=== PATIENT | male | born 1965 | race Caucasian/White ===

== ENCOUNTER 2017-01-12 10:16 | Outpatient (CLI) | payer OTHER | END 2017-01-12 23:59 | DX: E78.1 Pure hyperglyceridemia (principal); D45 Polycythemia vera ==

== ENCOUNTER 2017-06-27 14:20 | Outpatient (CLI) | payer OTHER ==
--- NOTE | 2017-06-27 18:49 | Ultrasound Report ---
COMPLETE ABDOMINAL ULTRASOUND: 06/27/2017 CLINICAL INDICATION: Polycythemia vera, possible splenomegaly, pain. TECHNIQUE: Real-time scanning was performed with marketing sales representative static images obtained. The liver measures 12.9 cm. Hepatic echogenicity is normal. No intrahepatic biliary dilatation or f ocal parenchymal lesion is appreciated. The common bile duct measures 3 mm. The gallbladder is unre markable. The pancreas is obscured by bowel gas, as are portions of the left lobe of the liver. The kidneys are normal, with right measuring 11.2 cm and the left measuring 12.1 cm. The spleen measure s 11.2 cm, and demonstrates normal echotexture. The abdominal aorta is normal in caliber. The infer ior vena cava is unremarkable. No free fluid is present. IMPRESSION: NO EVIDENCE OF SPLENOMEGALY. NO EVIDENT ETIOLOGY FOR PATIENT'S ABDOMINAL PAIN. JOB #: [id number] EXT JOB #:[id number]
== END 2017-06-27 14:21 | disposition home or self-care (01) ==
LOC: DI 14:20
PROVIDERS: ATTEND Family Medicine
DX: R10.9 Unspecified abdominal pain (principal)
CPT/HCPCS: 76700

== ENCOUNTER 2018-10-06 12:08 | Outpatient (CLI) | payer OTHER ==
--- NOTE | 2018-10-06 21:28 | MRI Report ---
Reason: KNEE JOIN PAIN, LEFT 3 MONTHS Procedure Date: 10/06/2018 Accession Number: [id number] / [id number] Procedure: MRI - Knee LT W/O CPT Code: FULL RESULT: EXAM: LEFT KNEE MRI WITHOUT CONTRAST EXAM DATE: 10/06/2018 12:50 PM. CLINICAL HISTORY: KNEE JOIN PAIN, LEFT 3 MONTHS. COMPARISON: KNEE 2 VIEW LT 09/24/2018 2:46 PM. TECHNIQUE: Multiplanar, multisequence T1-weighted and fluid-sensitive sequences of the knee without contrast. Other: None. FINDINGS: Ligaments: The anterior cruciate, posterior cruciate, medial collateral, and lateral collateral ligaments are intact. Patellofemoral compartment: Mild partial-thickness medial retropatellar chondromalacia. Minimal partial thickness central femoral trochlear chondromalacia. No patellofemoral osteoarthritis. Incidental elongated medial plica extends into the medial patellofemoral joint space. Patellofemoral alignment is anatomic. The distal quadriceps and patellar tendons are normal. The medial and lateral patellofemoral retinacula are normal. Medial compartment: The medial meniscus is intact. Mild partial-thickness chondromalacia of the lateral margin of the medial femoral condyle with minimal subjacent degenerative marrow signal changes. No significant medial compartment osteophyte formation. Lateral compartment: The lateral meniscus is intact. Lateral compartment cartilage is normal. No lateral compartment osteoarthritis. Soft tissues: There is a large knee effusion with moderate synovitis. There is only a minuscule popliteal cyst. Fluid tracks proximally from the knee joint along the popliteus tendon sheath. Visible muscular and tenderness structures are unremarkable. IMPRESSION: 1. Mild partial-thickness medial retropatellar chondromalacia. Minimal partial thickness central femoral trochlear chondromalacia. 2. Elongated medial plica extends into the medial patellofemoral joint space. 3. Mild partial-thickness chondromalacia of the lateral margin of the medial femoral condyle without associated osteoarthritis. Intact medial meniscus. 4. Normal lateral compartment. 5. Large knee effusion with moderate synovitis. This is out of proportion to the relatively mild findings present elsewhere in the knee and could reflect evidence of an inflammatory arthropathy. [facility] MUSCULOSKELETAL RADIOLOGY SECTION
== END 2018-10-06 12:09 | disposition home or self-care (01) ==
LOC: DI 12:08
PROVIDERS: ATTEND Family Medicine
DX: M94.262 Chondromalacia, left knee (principal); M67.52 Plica syndrome, left knee; M65.9 Synovitis and tenosynovitis, unspecified; M25.462 Effusion, left knee

== ENCOUNTER 2018-10-29 08:00 | Outpatient (CLI) | payer OTHER ==
[2018-10-29 14:58] LABS: ALBUMIN 4.2 g/dL (3.2-5.5); ALBUMIN/GLOBULIN RATIO 1.2 (1.0-2.2); ALKALINE PHOSPHATASE 58 IU/L (42-121); ALT ALANINE AMINOTRANSFERASE 30 IU/L (10-60); AST ASPARTATE AMINOTRANSFERASE 26 IU/L (10-42); BILIRUBIN,TOTAL 0.8 mg/dL (0.2-1.0); BUN - BLOOD UREA NITROGEN 15 mg/dL (6-20); CALCIUM 8.7 mg/dL (8.5-10.3); CARBON DIOXIDE - CO2 28 mmol/L (21-32); CHLORIDE 101 mmol/L (101-111); CHOLESTEROL 166 mg/dL; CREATININE 0.9 mg/dL (0.6-1.2); GFR - MDRD 88 (>89); GLUCOSE 105 mg/dL (70-100); HDL CHOLESTEROL 41 mg/dL; LDL CHOLESTEROL,CALCULATED 106 mg/dL; LDL/HDL RATIO 2.6 (<3.6); SODIUM 137 mmol/L (135-145); TOTAL PROTEIN 7.6 g/dL (6.7-8.2); VLDL CHOLESTEROL 19 mg/dL
[2018-10-29 15:19] LABS: BASOPHILS # (AUTO) 0.1 10^3/uL (0.0-0.1); BASOPHILS % (AUTO) 1.4 %; EOSINOPHILS # (AUTO) 0.4 10^3/uL (0.0-0.7); EOSINOPHILS % (AUTO) 5.3 %; LYMPHOCYTES # (AUTO) 1.9 10^3/uL (1.5-3.5); LYMPHOCYTES % (AUTO) 27.8 %; MEAN CORPUSCULAR HEMOGLOBIN 31.3 pg (27.0-31.0); MEAN CORPUSCULAR HGB CONC 34.5 g/dL (32.0-36.0); MEAN CORPUSCULAR VOLUME 90.6 fL (80.0-94.0); MONOCYTES # (AUTO) 0.6 10^3/uL (0.0-1.0); MONOCYTES % (AUTO) 9.4 %; NEUTROPHILS # (AUTO) 3.8 10^3/uL (1.5-6.6); NEUTROPHILS % (AUTO) 56.1 %; PLT - PLATELET COUNT 253 10^3/uL (130-450); RED BLOOD COUNT 5.12 10^6/uL (4.70-6.10); RED CELL DISTRIBUTION WIDTH 12.8 % (12.0-15.0); WHITE BLOOD COUNT 6.8 x10^3/uL (4.8-10.8)
== END 2018-10-29 23:59 | disposition home or self-care (01) ==
LOC: LAB.WCP 08:00
PROVIDERS: ATTEND Family Medicine
DX: E78.1 Pure hyperglyceridemia (principal); D45 Polycythemia vera; I10 Essential (primary) hypertension
CPT/HCPCS: 36415; 80053; 80061; 83721; 84443; 85025

== ENCOUNTER 2018-11-25 08:41 | Emergency (ER) | payer OTHER ==
[2018-11-25 08:54] VITALS: BP 132/81
--- NOTE | 2018-11-25 09:10 | ED Physician Documentation ---
PD HPI URI - Stated complaint Stated Complaint: COUGH/CONGESTION - Chief complaint Chief Complaint: Heent - History obtained from History obtained from: Patient - History of Present Illness Timing - onset: How many days ago (3) Timing duration: Weeks (3) Timing details: Gradual onset, Intermittant Pain level max: 0 Pain level now: 0 Associated symptoms: Nasal congestion, Rhinorrhea, Sore throat, Productive cough, Bilateral edema. 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 No: Sick contact, Immunocompromised, COPD / asthma Improves by: Nothing Worsened by: Other (Nothing) Similar symptoms before: Has not had sx before Recently seen: Not recently seen - Additional information Additional information: 53-year-old male with history of hypertension and GERD, non-smoker here with with complaint of cough the past 3 days. He stated it started as dry and now has a little bit of yellowish phlegm. stated that this is been going on the past 3 weeks he would get better and then it would come back. 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 Patient denies any trauma or sick contact at home. States did not get his flu shot this year.Patient states he had taken robitussin DM and expectorant, Mucinex, lozenges and it has not help at all.When asked patient informed me that he is on lisinopril for his high blood pressure. Review of Systems Ten Systems: 10 systems reviewed and negative Constitutional: denies: Fever, Myalgias, Fatigue Nose: reports: Rhinorrhea / runny nose, Congestion Throat: reports: Sore throat Cardiac: denies: Chest pain / pressure Respiratory: reports: Cough. denies: Dyspnea, Hemoptysis, Wheezing GI: denies: Abdominal Pain, Nausea, Diarrhea Musculoskeletal: denies: Neck pain, Back pain, Extremity pain, Extremity swelling Neurologic: denies: Generalized weakness PD PAST MEDICAL HISTORY - Present Medications Home Medications: Ambulatory Orders Medication Instructions Recorded Confirmed Acetaminophen/Cod 300/30 [Tylenol 1 each PO Q8HR PRN #12 tablet 11/25/18 #3] RX: Aspirin 81 mg PO 12/11/25/18 RX: Lisinopril 10 mg PO 11/25/18 - Allergies Allergies/Adverse Reactions: Allergies Allergy/AdvReac Type Severity Reaction Status Date / Time Penicillins Allergy Mild Rash Verified 01/20/16 14:13 Sulfa (Sulfonamide Allergy Mild sores in Verified 01/20/16 14:13 Antibiotics) mouth PD ED PE NORMAL - Vitals Vital signs reviewed: Yes - General General: Alert and oriented X 3, No acute distress, Well developed/nourished - HEENT HEENT: Moist mucous membranes, Pharynx benign - Neck Neck: Supple, no meningeal sign - Cardiac Cardiac: RRR, No murmur - Respiratory Respiratory: No respiratory distress, Clear bilaterally - Abdomen Abdomen: Normal bowel sounds, Soft, Non tender, Non distended - Back Back: No CVA TTP - Derm Derm: Normal color, Warm and dry - Extremities Extremities: No deformity - Neuro Neuro: Alert and oriented X 3 - Psych Psych: Normal mood, Normal affect Results - Vitals Vitals: Vital Signs - 24 hr 11/25/18 08:52 Temperature 36.4 C L Heart Rate 70 Respiratory 18 Rate Blood Pressure 132/81 H O2 Saturation 98 Oxygen O2 Source Room air - Labs Labs: Laboratory Tests 11/25/18 09:20 Influenza A (Rapid) Negative Influenza B (Rapid) Negative PD MEDICAL DECISION MAKING - ED course Complexity details: reviewed results, re-evaluated patient, considered differential (Influenza, viral syndrome, upper respiratory infection, pneumonia, bronchitis), d/w patient, d/w family ED course: patient in no acute distress and nontoxic-appearing with intermittent dry cough informed of negative flu and negative chest x-ray. He now tells me that he is on lisinopril. Patient and informed that this may be the cause of hi s chronic cough. Instructed to call his primary doctor tomorrow for reevaluation of his lisinopril and cough And to consider switching to another antihypertensive medication. Patient is requesting to get a prescription for antitussive so it will help him and his sleep at nighttime. Will prescribe Tylenol 3 and safety precautions discussed. Departure - Departure Disposition: 01 Home, Self Care Clinical Impression: Cough due to DIANA inhibitor Condition: Stable Instructions: ED Cough Chronic Cause Unkn Prescriptions: Acetaminophen/Cod 300/30 [Tylenol #3] 1 each PO Q8HR PRN #12 tablet PRN Reason: Cough Comments: Your cough may be related to your lisinopril. Call your primary doctor tomorrow for reevaluation. Only take the Tylenol 3 when your cough is persistent. Do not drive or drink alcohol with this medication. And maintain safety. Sometimes the codeine can cause dizziness,Nausea and constipation. To prevent constipation drink lots of water, eat high-fiber foods and or take stool softener. If worse return to the emergency room. Discharge Date/Time: 11/25/18 10:32
--- NOTE | 2018-11-25 09:44 | XRAY Report ---
Reason: persistent cough Procedure Date: 11/25/2018 Accession Number: [id number] / [id number] Procedure: XR - Chest 2 View X-Ray CPT Code: 61025 FULL RESULT: EXAM: CHEST RADIOGRAPHY EXAM DATE: 11/25/2018 09:17 AM. CLINICAL HISTORY: Persistent cough. COMPARISON: None. TECHNIQUE: 2 views. FINDINGS: Lungs/Pleura: No focal airspace opacities. No pleural effusion or pneumothorax. Mediastinum: Cardiomediastinal silhouette and pulmonary vasculature are within normal limits. Other: None. IMPRESSION: No acute cardiopulmonary abnormality. [facility]
== END 2018-11-25 10:32 | disposition home or self-care (01) ==
LOC: ED 08:41
DX: R05 Cough (principal); T46.4X5A Adverse effect of angiotensin-converting-enzyme inhibitors, initial encounter; I10 Essential (primary) hypertension; Z79.82 Long term (current) use of aspirin
CPT/HCPCS: 71046; 87275; 87276; 99283

== ENCOUNTER 2020-11-25 08:29 | Outpatient (CLI) | payer OTHER ==
--- NOTE | 2020-11-25 09:09 | SLEEP CARE CONSULTATION ---
Information from patient questionnaire entered by Brittaney Thurston. I have reviewed and concur with the information entered by Brittaney Thurston. This document represents the service I personally performed and the decisions made by me, Payton Dietrich ARNP. History of Present Illness Service Date and Time: 11/25/2020828 Reason for Visit: New patient Chief Complaint: reports: Unrefreshed sleep, Snoring, Observed pauses in breathing, Frequent awakenings at night. denies: Excessive daytime sleepiness Date of Onset: 2-3 years Usual bedtime: 10 PM Time it takes to fall asleep: 30 minutes Snores at night: Yes Observed to quit breathing while asleep: Yes Sleeps alone due to snoring: Yes Number of times waking at night: 2-3 times Reasons for waking at night: reports: Bathroom. denies: Choking, Snoring, Gasping for air Toss, Turn, or Twitch while sleeping: Yes Recalls having dreams: Yes Usually gets out of bed at: 6 AM Feels refreshed in the morning: No Morning headache: No Sleepy or fatigued during the day: No Ever fallen asleep while driving: No Takes day naps: No Dreams during day naps: No Prior sleep studies: No Additional HPI information: I had the pleasure of seeing ANGIE HATCH today regarding the possibility of him having a sleep disorder. His current complaints are snoring, observed pauses in breathing, and unrefreshed sleep. noted some pauses in breathing. He ju st doesn't feel like he sleeps well. He gets about 6 hours on average. He does grind his teeth at night, according to . 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 - Parasomnia Symptoms Ever been unable to move upon waking from sleep: No Walks in sleep: Yes (on occasion, not in last 10 years) Talks in sleep: No Ever acted out dreams in sleep: No Ever felt weak in the knees when startled or emotional: No Bothered by creepy, crawly, restless sensations in legs: No Problems with memory or concentration: No Subjective Initial [place] Sleepiness Scale score: 3 (in 2019) Past Medical History Past Medical History: reports: Hypertension, Arthritis, Anxiety. denies: Arrythmia, Impotence, Depression, Mood disorder, GERD Social History The patient's occupation is a [employer]. Patient is and lives in [place]. Have you smoked in the past 12 months: No Alcohol use: Yes Alcohol amount and frequency: 2-3, 1-2/weekly Caffeine use: Yes Caffeine amount and frequency: 1 cup coffee/daily Family History Family history of sleep disordered breathing: No Family Hx Sleep Apnea: Sibling: Snoring (brother) Allergies and Home Medications Drug allergies reviewed: Yes (Sulfa, penicillin, azithromycin) Home medication list reviewed: Yes Allergy and home medication list: Alprazolam 0.5 mg, prn Baby aspirin 81 mg Review of Systems Weight loss over past 5 years: 15-20 Cardiovascular: reports: high blood pressure Respiratory: denies: shortness of breath Gastrointestinal: reports: heartburn, difficulty swallowing Urinary: reports: frequency Neurological: denies: headaches, head trauma Psychiatric: reports: anxiety, claustrophobia. denies: depression, mood disorder Ear/Nose/Throat: reports: nasal congestion, sinus problems (sinus surgery), wisdom teeth removed. denies: dry mouth/throat, injury to nose, tonsillectomy Endocrine: reports: increased urination Musculoskeletal: reports: joint pain, joint swelling Immunologic: reports: allergies to food or environment Physical Exam Blood Pressure: 136/96 Cuff size: long Heart Rate: 76 O2 Saturation: 98 Height: 6 ft Weight: 236 lb Body Mass Index: 32.0 BMI Classification: Obese Neck circumference: 18 (inches) Nostrils: patent to airflow Turbinates: normal Septum: midline Mouth and throat: narrow oropharynx Soft palate: long Hard palate: normal Uvula: normal Uvula visualization: 50% Mallampati Class II Tongue: normal in size Tonsils: 2+ Chin and jaw: normal size and position Neck: normal w/o lymphadenopathy or thyromegaly Heart: regular rate and rhythm Lungs: clear bilaterally Impression and Plan 1. Suspected Obstructive Sleep Apnea-Hypopnea Syndrome, as suggested by a history of loud and irregular snoring, observed cessation of breath while asleep, frequent awakening during the night, and unrefreshed sleep. I reviewed with patient that a narrow oropharynx and obesity are common predisposing fac tors for obstructive sleep apnea-hypopnea syndrome. I recommend proceeding to polysomnography to confirm the diagnosis and to assess severity. If the patient has significant sleep disordered breathing, a manual CPAP titration study will also be performed to find the optimal treatment pressure. I informed the patient of what the sleep studies involve and after some discussion, obtained agreement to proceed. The pathophysiology of obstructive sleep apnea-hypopnea syndrome was discussed with the patient and health risks of cardiovascular and cerebrovascular disease if not treated. AAS brochure for obstructive sleep apnea-hypopnea syndrome given and reviewed. Risks of drowsy driving discussed in detail and patient advised to avoid long distance driving and to pull socket assembler at the first sign of drowsiness. Patient agreed to plan. * Schedule polysomnography +- manual CPAP titration study and return in 1-2 weeks after the study to discuss result and initiate therapy. * Avoid long distance driving or driving when feeling sleepy. * Avoid alcohol, sedative and muscle relaxant around bedtime. * Attempt to lose weight. * Review instructions provided by trained office staff on how to prepare for the sleep study. * Return for follow-up after sleep study completed. Counseling Topics: Weight loss health impact Visit Type: In Office Time Spent with Patient (minutes): 30 Provider Statement: I spent 100% of the Face to Face Visit with the patient with greater than 50% spent counseling the patient and coordination of care.
[2020-11-25 09:10] VITALS: BP 136/96
== END 2020-11-25 08:30 | disposition home or self-care (01) ==
LOC: SC 08:29
PROVIDERS: ATTEND Nurse Practitioner Family
DX: R06.81 Apnea, not elsewhere classified (principal); G47.8 Other sleep disorders; R06.83 Snoring; E66.9 Obesity, unspecified; Z68.32 Body mass index [BMI] 32.0-32.9, adult
CPT/HCPCS: 99203; 99212

== ENCOUNTER 2020-12-11 09:33 | Outpatient (CLI) | payer OTHER ==
[2020-12-11 12:57] LABS: BASOPHILS # (AUTO) 0.1 10^3/uL (0.0-0.1); BASOPHILS % (AUTO) 1.5 %; EOSINOPHILS # (AUTO) 0.3 10^3/uL (0.0-0.7); EOSINOPHILS % (AUTO) 4.3 %; LYMPHOCYTES # (AUTO) 1.8 10^3/uL (1.5-3.5); LYMPHOCYTES % (AUTO) 30.5 %; MEAN CORPUSCULAR HEMOGLOBIN 29.8 pg (27.0-31.0); MEAN CORPUSCULAR HGB CONC 33.8 g/dL (32.0-36.0); MEAN CORPUSCULAR VOLUME 88.1 fL (80.0-94.0); MEAN PLATELET VOLUME 9.7 fL (7.4-11.4); MONOCYTES # (AUTO) 0.5 10^3/uL (0.0-1.0); MONOCYTES % (AUTO) 8.1 %; NEUTROPHILS # (AUTO) 3.3 10^3/uL (1.5-6.6); NEUTROPHILS % (AUTO) 55.4 %; PLT - PLATELET COUNT 278 10^3/uL (130-450); RED BLOOD COUNT 5.37 10^6/uL (4.70-6.10); RED CELL DISTRIBUTION WIDTH 12.5 % (12.0-15.0)
[2020-12-11 13:18] LABS: ALBUMIN/GLOBULIN RATIO 1.1 (1.0-2.2); ALKALINE PHOSPHATASE 54 IU/L (42-121); ALT ALANINE AMINOTRANSFERASE 17 IU/L (10-60); AST ASPARTATE AMINOTRANSFERASE 17 IU/L (10-42); BILIRUBIN,TOTAL 0.9 mg/dL (0.2-1.0); BUN - BLOOD UREA NITROGEN 15 mg/dL (6-20); CALCIUM 9.4 mg/dL (8.5-10.3); CARBON DIOXIDE - CO2 27 mmol/L (21-32); CHLORIDE 102 mmol/L (101-111); CHOL/HDL RATIO 4.2 (<5.0); CHOLESTEROL 164 mg/dL; CREATININE 0.8 mg/dL (0.6-1.2); GLUCOSE 96 mg/dL (70-100); HDL CHOLESTEROL 39 mg/dL; LDL CHOLESTEROL,CALCULATED 100 mg/dL; LDL/HDL RATIO 2.6 (<3.6); SODIUM 139 mmol/L (135-145); TOTAL PROTEIN 7.7 g/dL (6.7-8.2); VLDL CHOLESTEROL 25 mg/dL
== END 2020-12-11 09:34 | disposition home or self-care (01) ==
LOC: LAB.WCP 09:33
PROVIDERS: ATTEND Internal Medicine
DX: I10 Essential (primary) hypertension (principal); Z12.5 Encounter for screening for malignant neoplasm of prostate
CPT/HCPCS: 36415; 80053; 80061; 83721; 84153; 85025

== ENCOUNTER 2020-12-13 18:53 | Outpatient (CLI) | payer OTHER ==
--- NOTE | 2020-12-13 22:00 | Ultrasound Report ---
PROCEDURE: Abdomen Complete INDICATIONS: ABD PAIN TECHNIQUE: Real-time scanning was performed of the abdominal and retroperitoneal organs, with image documentatio n. COMPARISON: None. FINDINGS: Technically difficult exam due to acoustic windows and body habitus. Liver: Liver is normal in size. Within normal limits in echotexture. Gallbladder: Contracted. No stones or sludge. No gallbladder wall thickening. No pericholecystic flui d. Negative sonographic [place] sign. Biliary ducts: Intrahepatic bile ducts are non-dilated. Extrahepatic bile duct caliber measures 4 m m. Normal is 6-7 mm or less in diameter, or 10 mm or less post-cholecystectomy. Pancreas: Not well seen. Spleen: Within normal limits. Measures 12.4 cm in long axis. Kidneys: Kidneys are normal in size and echotexture. Right kidney measures 11.9 cm long; left kidne y measures 12 cm long. No hydronephrosis or nephrolithiasis. No solid masses. Lobular appearance of the kidneys. Left prominent column of Frank. Aorta: Visualized aorta is normal in caliber at less than 3 cm. Iliacs: Proximal common iliac arteries are normal in caliber at less than 2.5 cm. IVC: Not well seen. Miscellaneous: No free abdominal fluid. IMPRESSION: Technically difficult exam due to acoustic windows and body habitus. 1. No acute cholecystitis. No gallstones. Contracted gallbladder despite NPO status. 2. Spleen within normal limits in size. 3. No hydronephrosis. Reviewed by: Curtis Torres MD on 12/13/2020 9:59 PM PST Approved by: Curtis Torres MD on 12/13/2020 9:59 PM PST Station ID: [id number]
== END 2020-12-13 18:54 | disposition home or self-care (01) ==
LOC: DI 18:53
PROVIDERS: ATTEND Internal Medicine
DX: R10.9 Unspecified abdominal pain (principal)

== ENCOUNTER 2020-12-17 06:13 | Outpatient (CLI) | payer OTHER ==
[2020-12-17] MEDS ORDERED: IOVERSOL 320 50 ML VIAL ONE (06:48)
[2020-12-17] MEDS ORDERED: IOVERSOL 320 100 ML VIAL IVP ONE ×2 (06:48→07:39)
[2020-12-17] MEDS ORDERED: IOVERSOL 320 50 ML VIAL PO ONE (07:39)
--- NOTE | 2020-12-17 10:41 | CT Report ---
PROCEDURE: Abdomen/Pelvis W INDICATIONS: ABD PAIN CONTRAST: IV CONTRAST: Optiray 320 ml: 100 PO CONTRAST: Optiray 320 ml50 TECHNIQUE: After the administration of weight appropriate dose of intravenous contrast, 5 mm thick sections acqu ired from the diaphragms to the symphysis. 5 mm thick coronal and sagittal reformats were acquired. For radiation dose reduction, the following was used: automated exposure control, adjustment of mA and/or kV according to patient size. COMPARISON: Abdominal ultrasound dated 12/13/2020 FINDINGS: Image quality: Excellent. ABDOMEN: Lung bases: Lung bases are clear. Heart size is normal. Small hiatal hernia. Solid organs: Liver and spleen are normal in size and enhancement. Gallbladder is unremarkable. Bi liary system is non dilated. Pancreas enhances normally. No adrenal nodules. Kidneys demonstrate n ormal size and enhancement, without hydronephrosis. Peritoneum and bowel: Bowel loops demonstrate normal wall thickness and caliber. No free fluid or a ir. A few scattered colonic diverticula without acute inflammation. Nodes and vessels: No retroperitoneal or mesenteric adenopathy by size criteria. Aorta and inferior vena cava are normal in size. Miscellaneous: No ventral hernias. PELVIS: Genitourinary: Urinary bladder wall thickness is normal for degree of bladder distention. Miscellaneous: No inguinal hernias or adenopathy. Bones: No suspicious bony lesions. No acute vertebral body compression fractures. There is right-s ided L5 pars defect as well as incomplete fusion of the posterior elements at L5. IMPRESSION: 1. CT abdomen and pelvis without acute abnormalities. 2. Small hiatal hernia. Reviewed by: Marek Damon MD on 12/17/2020 10:39 AM PST Approved by: Marek Damon MD on 12/17/2020 10:39 AM PST Station ID: [id number]
== END 2020-12-17 06:14 | disposition home or self-care (01) ==
LOC: DI 06:13
PROVIDERS: ATTEND Physician Assistant
DX: R10.9 Unspecified abdominal pain (principal); K44.9 Diaphragmatic hernia without obstruction or gangrene
CPT/HCPCS: 74177; Q9967

== ENCOUNTER 2021-01-06 07:54 | Outpatient (CLI) | payer OTHER | END 2021-01-06 07:55 | disposition home or self-care (01) | LOC: SC 07:54 | PROVIDERS: ATTEND Nurse Practitioner Family | DX: G47.33 Obstructive sleep apnea (adult) (pediatric) (principal); E66.3 Overweight; Z68.32 Body mass index [BMI] 32.0-32.9, adult | CPT/HCPCS: 95806 ==

== ENCOUNTER 2021-01-12 10:45 | Outpatient (CLI) | payer OTHER ==
--- NOTE | 2021-01-12 11:24 | SLEEP CARE CONSULTATION ---
Information from patient questionnaire entered by Yola Galindo. I have reviewed and concur with the information entered by Yola Galindo. This document represents the service I personally performed and the decisions made by , Payton Dietrich ARNP. History of Present Illness Service Date and Time: 01/12/2021 1045 Initial [place] Sleepiness Scale score: 3 (in 2020) Current [place] Sleepiness Scale score: 2 Additional HPI information: ANGIE HATCH returns for follow up and results of the recently performed home sleep study. I explained the pathophysiology behind obstructive sleep apnea. We then spent quite a bit of time discussing different treatment options. For mild obstructive sleep apnea, surgery and oral appliance are alternatives to nasal CPAP therapy but in moderate or severe cases, nasal CPAP is the most effective and reliable treatment. Because apnea is primarily in supine position, then positional management therapy could be effective. Methods discussed such as positioning with pillows, using a T-shirt with tennis balls in the back, and shown commercial products that have a pillow format on back to prevent supine sleep. I reviewed the impact of weight changes on sleep apnea and strongly recommended losing weight. I explained how CPAP machine works with sample devices Respironics Dreamstation and [employer] [id number] and what to expect when using the machine. AASM patient education PAP tips and Non Pap treatment pamphlets reviewed and given to patient. Patient counseled not drink alcohol less than 4 hours before bedtime as it can increase snoring and apnea. Patient was cautioned about risks of drowsy driving until sleepiness symptoms resolve. Sleep Study - Results Type of Sleep Study: Home sleep study Prior sleep studies: No Polysomnography/Home Sleep Study results: The quality of the study is good. The length of the study is adequate (> 240 minutes). Please also see the tabulated and graphic data. 1. Obstructive Sleep Apnea-Hypopnea (ICD-10 G47.33), moderate, with an AHI of 15.2/hr and molina SaO2 of 80%. During the study, the patient had 119 apneas (119 obstructive, 0 central, 0 mixed) and 18 hypopneas. The longest episode lasted 59.0 seconds. The respiratory events occurred almost exclusively during supine sleep (supine AHI was 48.3 and non-supine, 2.59). 2. Hypoxemia (ICD-10 R09.02), mild, with the lowest oxygen saturation of 80 % and 11.5 minutes with SaO2 under 90%. Baseline oxygen saturation was normal (Average oxygen saturation was 94%). Allergies and Home Medications Home medication list reviewed: Yes (no changes) Review of Systems Review of systems same as previous: Yes (no changes) Physical Exam Heart Rate: 63 O2 Saturation: 96 Height: 6 ft Weight: 225 lb Body Mass Index: 30.5 BMI Classification: Obese Impression and Plan 1. Obstructive Sleep Apnea-Hypopnea Syndrome, moderate, with lowest oxygen saturation of 80%. Obviously this is the cause of the patients symptoms of unrefreshed sleep, and excessive daytime sleepiness. Positive pressure therapy could benefit hypertension and anxiety. Compliance guidelines for CPAP also reviewed. I reviewed positional therapy since he is in normal range with a non- supine AHI of 2.59. I also reviewed oral appliance therapy as a possible treatment but it may not be an effective therapy to control apneas on his back. Patient would like to talk to and check a few things with insurance before making a decision on therapy. Because the apnea is more severe supine, I instructed to avoid sleeping supine using pillow positioning while he is considering different therapies. He was instructed to call us with his decision and he stated he would by the end of the week. * Patient to call with decision on therapy after discussion with . * Attempt to lose weight. * Avoid alcohol consumption near bedtime. * Avoid supine sleep. * The patient is again cautioned about driving until sleepiness completely resolves. * Return for follow up depending on his decision. Counseling Topics: Weight loss health impact Visit Type: In Office Time Spent with Patient (minutes): 23 Provider Statement: I spent 100% of the Face to Face Visit with the patient with greater than 50% spent counseling the patient and coordination of care.
== END 2021-01-12 10:46 | disposition home or self-care (01) ==
LOC: SC 10:45
PROVIDERS: ATTEND Nurse Practitioner Family
DX: G47.33 Obstructive sleep apnea (adult) (pediatric) (principal); E66.9 Obesity, unspecified; Z68.30 Body mass index [BMI] 30.0-30.9, adult
CPT/HCPCS: 99212

== ENCOUNTER 2021-01-29 16:51 | Outpatient (CLI) | payer OTHER | END 2021-01-29 16:52 | disposition home or self-care (01) | LOC: COV 16:51 | PROVIDERS: ATTEND Surgery | DX: Z01.812 Encounter for preprocedural laboratory examination (principal); R10.9 Unspecified abdominal pain; Z86.010 Personal history of colon polyps; Z20.822 Contact with and (suspected) exposure to COVID-19 ==

== ENCOUNTER 2021-02-02 11:45 | Day surgery (SDC) | payer OTHER ==
[2021-02-02] MEDS ORDERED: LACTATED RINGERS 1,000 ML IV ONE ×2 (12:26→14:52)
[2021-02-02] MEDS ORDERED: MIDAZOLAM 2 MG/2 ML VIAL ONE ×4 (14:00→14:48)
[2021-02-02] MEDS ORDERED: fentaNYL 250 MCG/5 ML VIAL ONE (14:00)
[2021-02-02] MEDS ORDERED: BENZOCAINE/TETRACAINE/BUTAMBEN 20 GM TOP ONE (14:10)
[2021-02-02] MEDS ORDERED: LIDO GARGLE 30 ML BOTTLE TOP ONE (14:10)
[2021-02-02] MEDS ORDERED: LIDO GARGLE 30 ML BOTTLE ONE (14:11)
[2021-02-02 15:15] VITALS: BP 159/107
== END 2021-02-02 11:46 | disposition home or self-care (01) ==
LOC: SDS 11:45
PROVIDERS: ATTEND Surgery
PROC: 0DB78ZX Excision of Stomach, Pylorus, Via Natural or Artificial Opening Endoscopic, Diagnostic (ICD-10-PCS; 2021-02-02)
PROC: 0DB68ZX Excision of Stomach, Via Natural or Artificial Opening Endoscopic, Diagnostic (ICD-10-PCS; 2021-02-02)
PROC: 0DB48ZX Excision of Esophagogastric Junction, Via Natural or Artificial Opening Endoscopic, Diagnostic (ICD-10-PCS; 2021-02-02)
PROC: 0DBL8ZZ Excision of Transverse Colon, Via Natural or Artificial Opening Endoscopic (ICD-10-PCS; principal; 2021-02-02 13:00)
PROC: 0DB98ZX Excision of Duodenum, Via Natural or Artificial Opening Endoscopic, Diagnostic (ICD-10-PCS; 2021-02-02 13:00)
DX: Z12.11 Encounter for screening for malignant neoplasm of colon (principal); D12.3 Benign neoplasm of transverse colon; K57.30 Diverticulosis of large intestine without perforation or abscess without bleeding; K64.8 Other hemorrhoids; R10.11 Right upper quadrant pain; R13.10 Dysphagia, unspecified; K21.9 Gastro-esophageal reflux disease without esophagitis; J39.2 Other diseases of pharynx; K29.50 Unspecified chronic gastritis without bleeding
CPT/HCPCS: 43239; 45385; A9270; J3010; J7120

== ENCOUNTER 2021-09-01 08:00 | Outpatient (CLI) | payer OTHER | END 2021-09-01 23:59 | LOC: LAB.N 08:00 | PROVIDERS: ATTEND Family Medicine | DX: J01.90 Acute sinusitis, unspecified (principal); Z20.822 Contact with and (suspected) exposure to COVID-19 ==

== ENCOUNTER 2021-11-04 09:03 | Outpatient (CLI) | payer OTHER ==
[2021-11-04 10:00] VITALS: BP 129/86
--- NOTE | 2021-11-04 10:00 | SLEEP CARE CONSULTATION ---
Information from patient questionnaire entered by Camille Medrano MA. I have reviewed and concur with the information entered by Camille Medrano MA. This document represents the service I personally performed and the decisions made by , Payton Dietrich ARNP. History of Present Illness Service Date and Time: 11/04/2021 0903 Previous diagnosis: Moderate, Obstructive Sleep Apnea-Hypopnea Syndrome AHI: 15.2 Reason for follow up: first compliance (IST COMPLIANCE - 08/26 SET UP, RESMED) Equipment type: CPAP Equipment obtained from: [employer] (getting supplies as needed) Mask style: Full face Mask brand: Resmed Backup mask available: Yes (other mask) Last cushion change: 2 weeks Prior sleep studies: No Type of Sleep Study: Home sleep study HPI additional information: ANGIE HATCH was diagnosed to have moderate, AHI 15.2, obstructive sleep apnea-hypopnea syndrome and returned today for CPAP therapy first compliance follow-up. Sleep Study - Results Type of Sleep Study: Home sleep study Prior sleep studies: No CPAP Compliance Data - Data Reviewed with Patient Average duration of nightly device use: 7 HOURS 23 MINUTES Compliance rate %: 100 Current pressure setting (cmH2O): 4-15 (median 6.1, 95% 9.9, max 12.0) Average residual AHI: 1.9 Central apnea: .2 Obstructive apnea: .5 Subjective Patient concerns: denies: aerophagia, mask discomfort, air blowing in eyes, mask leak noise, condensation in mask/hose, nasal congestion, dry mouth, nose, throat, epistaxis, other Observed to snore while using device: No Current pressure setting perceived as: comfortable On therapy, patient: reports: sleeping better, awakening more refreshed, being more awake and alert during the day, more rested overall. denies: drowsiness while driving Initial [place] Sleepiness Scale score: 3 (in 2019) Current [place] Sleepiness Scale score: 3 (2020) Allergies and Home Medications Known drug allergies: Yes (penicillan and sulfas) Home medication list reviewed: Yes (Lisinopril 10 mg started) Review of Systems Review of systems same as previous: Yes (no changes) Physical Exam Vital signs obtained and entered by: JAKE LAMAR Blood Pressure: 129/86 (left) Cuff size: wrist Heart Rate: 74 O2 Saturation: 97 (with mask) Height: 6 ft Weight: 230 lb (with clothes) Weight change since last visit: 5 lb gain Body Mass Index: 31.1 BMI Classification: Obese Impression and Plan 1. Obstructive Sleep Apnea-Hypopnea Syndrome, moderate, with excellent treatment compliance and good apnea control. On CPAP therapy, the patient has better sleep quality and is more rested overall. He is satisfied with his current therapy and has significant improvement of his sleep apnea. The patients pressure will be changed to autoCPAP 8-12 cmH20 to reflect the pressures he is using on the CPAP. Patient advised to contact me if pressure change is uncomfortable so that it can be adjusted. Goals for apnea control discussed. He had some delays in starting his device because he was dealing with of his mother and traveling. But, since starting he has become very compliant. He has also gained some weight and he is trying to work on losing weight since stress has reduced in his life. Patient's apnea severity and rationale for treatment to reduce apnea, improve sleep quality and reduce cardiovascular and cerebrovascular events was reviewed. I also reviewed the benefit of consistent device use of CPAP for hypertension and anxiety. * Change auto CPAP pressure to 8-12 cmH2O * Notify me if snoring with mask or feeling that the pressure is too much or too little * Attempt to lose weight * Call this office if any problems using CPAP * Return for follow up in 1-2 months, or sooner if concerns arise Counseling Topics: Spare mask, Weight loss health impact Visit Type: In Office Time Spent with Patient (minutes): 20 Provider Statement: I spent 100% of the Face to Face Visit with the patient with greater than 50% spent counseling the patient and coordination of care.
== END 2021-11-04 09:04 | disposition home or self-care (01) ==
LOC: SC 09:03
PROVIDERS: ATTEND Nurse Practitioner Family
DX: G47.33 Obstructive sleep apnea (adult) (pediatric) (principal); E66.9 Obesity, unspecified; Z68.31 Body mass index [BMI] 31.0-31.9, adult
CPT/HCPCS: 99212; 99213

== ENCOUNTER 2022-01-07 11:22 | Outpatient (CLI) | payer OTHER ==
[2022-01-07 12:00] VITALS: BP 160/110
--- NOTE | 2022-01-07 12:01 | SLEEP CARE CONSULTATION ---
Information from patient questionnaire entered by Camille Medrano MA. I have reviewed and concur with the information entered by Camille Medrano MA. This document represents the service I personally performed and the decisions made by , Payton Dietrich ARNP. History of Present Illness Service Date and Time: 01/07/2022 1122 Previous diagnosis: Moderate, Obstructive Sleep Apnea-Hypopnea Syndrome AHI: 15.2 Reason for follow up: other (2 month f/u, pressure change) Equipment type: CPAP Equipment obtained from: [email or web address] (getting supplies as needed) Mask style: Nasal Backup mask available: Yes (old mask) Last cushion change: 1 month Prior sleep studies: No Type of Sleep Study: Home sleep study HPI additional information: ANGIE HATCH was diagnosed to have moderate, AHI 15.2, obstructive sleep apnea-hypopnea syndrome and returned today for CPAP therapy 2 month with pressure change follow-up. Sleep Study - Results Type of Sleep Study: Home sleep study Prior sleep studies: No CPAP Compliance Data - Data Reviewed with Patient Average duration of nightly device use: 6 hours 45 minutes Compliance rate %: 93 Current pressure setting (cmH2O): 4-15 (95% 8.1, max 10.0) Average residual AHI: 3.8 Central apnea: .6 Obstructive apnea: 1.1 Average large leak: 50.1 Subjective Patient concerns: reports: air blowing in eyes (just needs adjustment to resolve). denies: aerophagia, mask discomfort, mask leak noise, condensation in mask/hose, nasal congestion, dry mouth, nose, throat, epistaxis, other Observed to snore while using device: No Current pressure setting perceived as: comfortable On therapy, patient: reports: sleeping better, awakening more refreshed, being more awake and alert during the day, more rested overall. denies: drowsiness while driving Initial [place] Sleepiness Scale score: 3 (in 2019) Current [place] Sleepiness Scale score: 3 (2021) Allergies and Home Medications Known drug allergies: Yes (PNC, SULFA BASED ANTIBIOTICS.) Drug allergies reviewed: Yes Home medication list reviewed: Yes (no changes) Allergy and home medication list: Allergies Penicillins Allergy (Mild, Verified 01/20/16 14:13) Rash Sulfa (Sulfonamide Antibiotics) Allergy (Mild, Verified 01/20/16 14:13) sores in mouth azithromycin Allergy (Verified 12/06/18 13:36) Unknown omeprazole [From Prilosec] Allergy (Verified 02/01/21 14:18) Unknown Review of Systems Review of systems same as previous: Yes (no changes) Physical Exam Vital signs obtained and entered by: Javier MEDRANO CMA AAMA Blood Pressure: 160/110 (LEFT, PULSE 79, RESP 20) Cuff size: wrist Heart Rate: 70 O2 Saturation: 98 (CLOTH MASK) Height: 6 ft Weight: 230 lb (WITH CLOTHES) Body Mass Index: 31.1 BMI Classification: Obese Impression and Plan 1. Obstructive Sleep Apnea-Hypopnea Syndrome, moderate, with good treatment compliance and good apnea control. On CPAP therapy, the patient has better sleep quality and is more rested overall. Patient is satisfied with current CPAP therapy. His pressures should have been changed but it appears that no changes were made to his pressure settings. I will adjust the pressures to reflect the pressures he has been using to 8-10 cmH2O. He will let me know if the change is uncomfortable for further adjustment as needed. Patient having some air leaking into his eyes. Mask leaks can be reduced by washing mask daily and changing mask cushions more frequently to improve mask seal and comfort. Additionally, mask leaks predominately from when patient sleeps on their side can be reduced by using a CPAP pillow. A CPAP pillow sample was shown. This and other styes can be purchased online. Patient's apnea severity and rationale for treatment to reduce apnea, improve sleep quality and reduce cardiovascular and cerebrovascular ev ents was reviewed. I also reviewed the benefit of consistent device use of CPAP for hypertension and anxiety. Patient was encouraged to try to lose weight to improve his overall health and to reduce apneas. * Change auto CPAP pressure to 8-10 cmH2O * Notify me if snoring with mask or feeling that the pressure is too much or too little * Attempt to lose weight * Call this office if any problems using CPAP * Return for follow up in 3 months, or sooner if concerns arise Counseling Topics: Spare mask, Weight loss health impact Visit Type: In Office Time Spent with Patient (minutes): 20 Provider Statement: I spent 100% of the Face to Face Visit with the patient with greater than 50% spent counseling the patient and coordination of care.
== END 2022-01-07 11:23 | disposition home or self-care (01) ==
LOC: SC 11:22
PROVIDERS: ATTEND Nurse Practitioner Family
DX: G47.33 Obstructive sleep apnea (adult) (pediatric) (principal); E66.9 Obesity, unspecified; Z68.31 Body mass index [BMI] 31.0-31.9, adult
CPT/HCPCS: 99212; 99213

== ENCOUNTER 2022-02-17 10:54 | Outpatient (CLI) | payer OTHER ==
--- NOTE | 2022-02-17 11:42 | CT Report ---
PROCEDURE: HEAD WO INDICATIONS: PRESISTENT POSTERIOR BATES TECHNIQUE: Noncontrast 4.5 mm thick angled axial sections acquired from the foramen magnum to the vertex. For r adiation dose reduction, the following was used: automated exposure control, adjustment of mA and/or kV according to patient size. COMPARISON: None. FINDINGS: Image quality: Excellent. CSF spaces: Basal cisterns are patent. No extra-axial fluid collections. Ventricles are normal in size and shape. Brain: No midline shift. No intracranial masses or hemorrhage. Garcia-white matter interface is norm al. Skull and face: Calvarium and visualized facial bones are intact, without suspicious lesions. Sinuses: Mild mucosal thickening noted in the visualized maxillary sinuses, the sphenoid sinuses bila terally and in the ethmoid air cells bilaterally. Mastoids are clear. IMPRESSION: 1. No acute intracranial disease process. 2. No abnormal intracranial mass or mass effect. 3. No intracranial hemorrhage. 4. Bilateral maxillary, bilateral sphenoid and bilateral ethmoid air cell sinusitis. Reviewed by: Michelle Almonte MD, PhD on 02/17/2022 11:41 AM PDT Approved by: Michelle Almonte MD, PhD on 02/17/2022 11:41 AM PDT Station ID: [id number]
== END 2022-02-17 10:55 | disposition home or self-care (01) ==
LOC: DI 10:54
PROVIDERS: ATTEND Internal Medicine
DX: J32.8 Other chronic sinusitis (principal); R51.9 Headache, unspecified

== ENCOUNTER 2022-04-15 13:36 | Outpatient (CLI) | payer OTHER ==
[2022-04-15 14:28] VITALS: BP 128/73
--- NOTE | 2022-04-15 14:28 | SLEEP CARE CONSULTATION ---
Information from patient questionnaire entered by Camille Medrano MA. I have reviewed and concur with the information entered by Camille Medrano MA. This document represents the service I personally performed and the decisions made by , Payton Dietrich ARNP. History of Present Illness Service Date and Time: 04/15/2022 1336 Previous diagnosis: Moderate, Obstructive Sleep Apnea-Hypopnea Syndrome AHI: 15.2 (in 2020) Reason for follow up: three month (PRESSURE CHANGE, RESMED, ) Equipment type: CPAP Equipment obtained from: [employer] (getting supplies as needed) Mask style: Full face (hybrid) Mask brand: Resmed (AirFit [id number]) Backup mask available: No (will keep old mask when) Last cushion change: 3 weeks Prior sleep studies: No Type of Sleep Study: Home sleep study HPI additional information: ANGIE HATCH was diagnosed to have moderate, AHI 15.2, obstructive sleep apnea-hypopnea syndrome and returned today for CPAP therapy three month follow- up. Sleep Study - Results Type of Sleep Study: Home sleep study Prior sleep studies: No CPAP Compliance Data - Data Reviewed with Patient Average duration of nightly device use: 5 HOURS 24 MINUTES Compliance rate %: 73 (90 days; 82/90 usage) Humidity settin-10 Average residual AHI: 1.6 Central apnea: .2 Obstructive apnea: .2 Average large leak: 56.6 Subjective Missed days of use due to: reports: travel (forget about putting CPAP mask on) Patient concerns: reports: air blowing in eyes (sometimes; ). denies: aerophagia, mask discomfort, mask leak noise, condensation in mask/hose, nasal congestion, dry mouth, nose, throat, epistaxis, other Observed to snore while using device: No Current pressure setting perceived as: comfortable On therapy, patient: reports: awakening more refreshed, being more awake and alert during the day, more rested overall. denies: drowsiness while driving Initial [place] Sleepiness Scale score: 3 (in 2019) Current [place] Sleepiness Scale score: 3 (03/2022) Allergies and Home Medications Known drug allergies: Yes (PNC, SULFA) Home medication list reviewed: Yes (no changes) Allergy and home medication list: Allergies Penicillins Allergy (Mild, Verified 01/20/16 14:13) Rash Sulfa (Sulfonamide Antibiotics) Allergy (Mild, Verified 01/20/16 14:13) sores in mouth azithromycin Allergy (Verified 12/06/18 13:36) Unknown omeprazole [From Prilosec] Allergy (Verified 02/01/21 14:18) Unknown Review of Systems Review of systems same as previous: Yes (no changes) Physical Exam Vital signs obtained and entered by: Javier MEDRANO CMA AAMARIBEL Blood Pressure: 128/73 (RESP 18, PULSE 92, RIGHT,) Cuff size: wrist Heart Rate: 67 O2 Saturation: 96 (PAPER) Height: 6 ft Weight: 240 lb (CLOTHES) Weight change since last visit: 10 lb gain Body Mass Index: 32.5 BMI Classification: Obese Impression and Plan 1. Obstructive Sleep Apnea-Hypopnea Syndrome, moderate, with good treatment co mpliance and good apnea control. On CPAP therapy, the patient has better sleep quality and is more rested overall. Patient has been getting occasional air leaking into his eyes. He states he has not had any more mask cushions but has received air filters and hoses for his machine. He states he has only had 2 mask cushions since he started using the machine. He also has large air leaks noted on his compliance report. Mask leaks can be reduced by washing mask daily and changing mask cushions more frequently to improve mask seal and comfort. Patient voiced understanding. Patient denies problems with oral dryness, nasal congestion, epistaxis, skin irritation or aerophagia. Patient also finding that when he gets up to the bathroom he has not remembering to replace the mask back on his face. This happens especially on nights that he is very tired. I advised patient to either place the mask on his pillow when he gets up, so that we will remind him to put the mask back on. He could also unhook the tubing and leave mask on and then re-attach when he returns to bed to reduce times finding mask in bed. He again voiced understanding and agreement with this plan. Patient's apnea severity and rationale for treatment to reduce apnea, improve sleep quality and reduce cardiovascular and cerebrovascular events was reviewed. I also reviewed the benefit of consistent device use of CPAP for hypertension and anxiety. Patient was encouraged to try to lose weight. * Continue auto CPAP pressure at 8-10 cmH2O * Notify me if snoring with mask or feeling that the pressure is too much or too little * Attempt to lose weight * Call this office if any problems using CPAP * Return for follow up in 1 year, or sooner if concerns arise Counseling Topics: Spare mask, Weight loss health impact Visit Type: In Office Time Spent with Patient (minutes): 21 Provider Statement: I spent 100% of the Face to Face Visit with the patient with greater than 50% spent counseling the patient and coordination of care.
== END 2022-04-15 13:37 | disposition home or self-care (01) ==
LOC: SC 13:36
PROVIDERS: ATTEND Nurse Practitioner Family
DX: G47.33 Obstructive sleep apnea (adult) (pediatric) (principal); E66.9 Obesity, unspecified; Z68.32 Body mass index [BMI] 32.0-32.9, adult
CPT/HCPCS: 99212; 99213

== ENCOUNTER 2022-05-13 10:36 | Emergency (ER) | payer OTHER ==
[2022-05-13] MEDS ORDERED: ALPRAZolam 0.25 MG TABLET PO STA (10:52)
--- NOTE | 2022-05-13 10:54 | ED Physician Documentation ---
History of Present Illness - Stated complaint Stated Complaint: WEAKNESS - History obtained from History obtained from: Patient - Additonal information Additional information: 56-year-old gentleman with history of hypertension. He took a teaspoon of pepper and turmeric and water around 9 AM. He did it for general inflammation. He was feeling otherwise fine and then got out of the shower feeling like his cheeks were flushed dizzy and lightheaded and anxious. There is no associated chest pain, trouble breathing, pedal edema. Did not pass out. He feels very anxious noting that he Takes an occasional Xanax and would like 1. Review of Systems Ten Systems: 10 systems reviewed and negative Constitutional: reports: Sweats. denies: Chills Cardiac: denies: Chest pain / pressure, Palpitations Respiratory: denies: Dyspnea, Cough Musculoskeletal: denies: Neck pain, Back pain PD PAST MEDICAL HISTORY - Past Medical History Cardiovascular: Hypertension GI: GERD - Present Medications Home Medications: Ambulatory Orders Medication Instructions Recorded Confirmed Aspirin 81 mg PO 11/25/18 11/25/18 - Allergies Allergies/Adverse Reactions: Allergies Allergy/AdvReac Type Severity Reaction Status Date / Time Penicillins Allergy Mild Rash Verified 05/13/22 10:53 Sulfa (Sulfonamide Allergy Mild sores in Verified 05/13/22 10:53 Antibiotics) mouth azithromycin Allergy Unknown Verified 05/13/22 10:53 omeprazole [From Prilosec] Allergy Unknown Verified 05/13/22 10:53 - Social History Does the pt smoke?: No Smoking Status: Never smoker PD ED PE NORMAL - Vitals Vital signs reviewed: Yes - General General: Alert and oriented X 3, No acute distress - HEENT HEENT: PERRL, EOMI - Neck Neck: Supple, no meningeal sign, No bony TTP - Cardiac Cardiac: RRR, No murmur - Respiratory Respiratory: No respiratory distress, Clear bilaterally - Abdomen Abdomen: Soft, Non tender - Derm Derm: Normal color, Warm and dry - Extremities Extremities: No edema, No calf tenderness / cord - Neuro Neuro: Alert and oriented X 3, No motor deficit, No sensory deficit, Normal speech Eye Opening: Spontaneous Motor: Obeys Commands Verbal: Oriented GCS Score: 15 Results - Vitals Vitals: Vital Signs - 24 hr 05/13/22 05/13/22 05/13/22 10:48 11:03 11:32 Temperature 37 C Heart Rate 93 92 83 Respiratory 16 10 L 19 Rate Blood Pressure 182/110 H 197/107 H 191/105 H O2 Saturation 98 100 96 05/13/22 12:00 Temperature Heart Rate 92 Respiratory 28 H Rate Blood Pressure 158/119 H O2 Saturation 97 Oxygen O2 Source Room air - EKG (time done) 1049 Rate: Rate (enter#) (92) Rhythm: NSR [place]: Normal Intervals: Normal SC QRS: Normal Ischemia: Normal ST segments - Labs Labs: Laboratory Tests 05/13/22 05/13/22 05/13/22 10:56 10:56 10:56 WBC 8.2 RBC 5.11 Hgb 16.3 Hct 46.5 MCV 91.0 MCH 31.9 H MCHC 35.1 RDW 12.2 Plt Count 254 MPV 9.3 Neut # (Auto) 5.2 Lymph # (Auto) 1.9 [place] # (Auto) 0.8 Eos # (Auto) 0.2 Baso # (Auto) 0.1 Absolute Nucleated RBC 0.00 Nucleated RBC % 0.0 VBG pH 7.409 VBG pCO2 41.7 VBG pO2 41.4 VBG HCO3 25.8 VBG Total CO2 27.1 VBG O2 Saturation 81.0 H VBG Base Excess 1.0 Sodium 136 Potassium 3.5 Chloride 98 L Carbon Dioxide 25 Anion Gap 13.0 BUN 16 Creatinine 1.0 Estimated GFR (MDRD) 77 L Glucose 107 H Calcium 9.4 Total Bilirubin 1.0 AST 19 ALT 18 Alkaline Phosphatase 63 Total Protein 8.2 Albumin 4.4 Globulin 3.8 Albumin/Globulin Ratio 1.2 Lipase 29 PD MEDICAL DECISION MAKING - ED course ED course: 56-year-old gentleman with history of hypertension presents with vague nonspecific symptoms after eating a fair dose of turmeric and black pepper for the first time for generalized inflammation. He requested Xanax on arrival and this was given. The work-up was otherwise negative. He was given his usual lisinopril dose and a little extra clonidine here. Departure - Departure Disposition: 01 Home, Self Care Clinical Impression: Dizziness Hypertension Qualifiers: Hypertension type: unspecified Qualified Code(s): I10 - Essential (primary) hypertension Condition: Good Record reviewed to determine appropriate education?: Yes Instructions: ED Dizziness UKO Comments: As discussed, I suspect your symptoms will be gone by vicorrow morning. Return for new or worsening symptoms and you can call me anytime this afternoon if you have concerns, phone number here is [phone]. Follow-up with your primary care physician next week as is routine after any emergency department visit.
[2022-05-13 11:11] LABS: BASOPHILS # (AUTO) 0.1 10^3/uL (0.0-0.1); BASOPHILS % (AUTO) 0.9 %; EOSINOPHILS # (AUTO) 0.2 10^3/uL (0.0-0.7); EOSINOPHILS % (AUTO) 2.6 %; HCT - HEMATOCRIT 46.5 % (42.0-52.0); HGB - HEMOGLOBIN 16.3 g/dL (14.0-18.0); LYMPHOCYTES # (AUTO) 1.9 10^3/uL (1.5-3.5); LYMPHOCYTES % (AUTO) 23.5 %; MEAN CORPUSCULAR HEMOGLOBIN 31.9 pg (27.0-31.0); MEAN CORPUSCULAR HGB CONC 35.1 g/dL (32.0-36.0); MEAN PLATELET VOLUME 9.3 fL (7.4-11.4); MONOCYTES # (AUTO) 0.8 10^3/uL (0.0-1.0); MONOCYTES % (AUTO) 9.3 %; NEUTROPHILS # (AUTO) 5.2 10^3/uL (1.5-6.6); NEUTROPHILS % (AUTO) 63.5 %; PLT - PLATELET COUNT 254 10^3/uL (130-450); RED BLOOD COUNT 5.11 10^6/uL (4.70-6.10); RED CELL DISTRIBUTION WIDTH 12.2 % (12.0-15.0); WHITE BLOOD COUNT 8.2 x10^3/uL (4.8-10.8)
[2022-05-13 11:12] LABS: VBG HCO3 25.8 mmol/L (23-28); VBG PCO2 41.7 mmHg (41-51); VBG PH 7.409 (7.31-7.41); VBG PO2 41.4 mmHg (25-47); VBG TOTAL CO2 27.1 mmol/L (24-29)
--- NOTE | 2022-05-13 11:12 | XRAY Report ---
PROCEDURE: Chest 1 View X-Ray INDICATIONS: Chest Pain TECHNIQUE: One view of the chest was acquired. COMPARISON: Chest x-ray 11/25/2018 FINDINGS: Surgical changes and devices: None. Lungs and pleura: No pleural effusions or pneumothorax. Lungs are clear. Mediastinum: Mediastinal contours appear normal. Heart size is normal. Bones and chest wall: No suspicious bony lesions. Overlying soft tissues appear unremarkable. IMPRESSION: No acute pulmonary process. Reviewed by: Jayshree Holguin MD on 05/13/2022 11:11 AM PDT Approved by: Jayshree Holguin MD on 05/13/2022 11:11 AM PDT Station ID: [id number]
[2022-05-13 11:23] LABS: ALBUMIN 4.4 g/dL (3.2-5.5); ALBUMIN/GLOBULIN RATIO 1.2 (1.0-2.2); CALCIUM 9.4 mg/dL (8.5-10.3); POTASSIUM 3.5 mmol/L (3.5-5.0); TOTAL PROTEIN 8.2 g/dL (6.7-8.2)
[2022-05-13] MEDS ORDERED: lisinopriL 5 MG TABLET PO STA (11:43)
[2022-05-13] MEDS ORDERED: cloNIDine 0.1 MG TABLET PO STA (11:43)
[2022-05-13 13:09] VITALS: BP 180/104
== END 2022-05-13 13:34 | disposition home or self-care (01) ==
LOC: ED 10:36
DX: R42 Dizziness and giddiness (principal); I10 Essential (primary) hypertension
CPT/HCPCS: 36415; 71045; 80053; 82803; 83690; 85025; 93005; 99282; 99284; A9270

== ENCOUNTER 2022-09-19 08:39 | Outpatient (CLI) | payer OTHER ==
--- NOTE | 2022-09-19 11:23 | Ultrasound Report ---
ULTRASOUND OF LEFT AXILLA: 09/19/2022 CLINICAL: Palpable left axilla lump. No prior exams were available for comparison. Color flow and real-time ultrasound of the left axilla were performed. Garcia scale images of the rusty l-time examination were reviewed. There is a 5 cm x 1.7 cm x 4.7 cm oval mass likely representing an enlarged lymph node in the left ax illa. This oval enlarged lymph node displays fatty hilum and reniform morphology with uniform cortex . There is no significant central hilar vasularity. IMPRESSION: PROBABLY BENIGN The 5 cm x 1.7 cm x 4.7 cm oval mass in the left axilla is favored to represent an enlarged lymph nod e with uniform thin cortex and is probably benign. A follow-up left axllary ultrasound in 3 months i s recommended. Recommend clinical follow up for persistent or worsening symptoms and to return sooner if development of any new clinically suspicious findings in the interim. This exam was interpreted at Station ID: [id number]. Electronically Signed By: Marek Damon M.D. aty/:09/19/2022 10:29:59 Ultrasound BI-RADS: 3 Probably benign BI-RADS CATEGORY: (3) - 3 Ultrasound [id number] 3 month follow-up LATERALITY: (L)
== END 2022-09-19 08:40 | disposition home or self-care (01) ==
LOC: DI 08:39
PROVIDERS: ATTEND Internal Medicine
DX: D17.9 Benign lipomatous neoplasm, unspecified (principal)

== ENCOUNTER 2022-12-28 13:41 | Outpatient (CLI) | payer OTHER ==
--- NOTE | 2022-12-29 13:08 | Ultrasound Report ---
ULTRASOUND OF LEFT AXILLA: 12/28/2022 CLINICAL: Palpable left axilla lump. Comparison is made to exam dated: 09/19/2022 ultrasound - [facility]. Color flow and real-time ultrasound of the left axilla were performed. Garcia scale images of the real -time examination were reviewed. There is a 5.9 cm x 4.3 cm x 1.3 cm oval enlarged lymph node with a circumscribed margin in the left axilla. This oval enlarged lymph node displays fatty hilum. Cortex is not thickened and measures 0.2 cm. This correlates as palpated. Color flow imaging demonstrates that there is vascularity present. IMPRESSION: PROBABLY BENIGN The 1.3 cm short axis diameter enlarged lymph node in the left axilla is not significantly changed in size and is probably benign. Nursing Educator reports a mild rash at the axilla. No additional enlarged nodes seen. Patient denies othe r areas of enlarged lymph nodes. Exam findings were conveyed to the patient. Patient is advised to monitor for significant change. Cli nical follow-up is recommended. Favor reactive lymph node. However, if concerned for lymphoma ultraso und guided biopsy would be helpful for tissue diagnosis. A follow-up ultrasound in 3-6 months is recommended to demonstrate stability or decrease in size. This exam was interpreted at Station ID: [id number]. Electronically Signed By: Curtis Torres M.D. [facility] [place]/:12/28/2022 15:40:10 Ultrasound BI-RADS: 3 Probably benign BI-RADS CATEGORY: (3) - 3 Ultrasound [id number] 6 month follow-up LATERALITY: (B)
== END 2022-12-28 13:42 | disposition home or self-care (01) ==
LOC: DI 13:41
PROVIDERS: ATTEND Internal Medicine
DX: R59.0 Localized enlarged lymph nodes (principal); R21 Rash and other nonspecific skin eruption

== ENCOUNTER 2023-05-26 15:45 | Outpatient (CLI) | payer OTHER ==
--- NOTE | 2023-05-26 16:09 | Sleep Patient Instructions ---
Sleep Center Visit Summary - Patient Visit Information Reason for Visit: Annual visit for PAP therapy - Patient Instructions Additional Instructions: You will continue with CPAP therapy with pressure set at 8-10 cmH2O. A supply prescription will be updated with your DME. We encourage you to continue to try to lose weight. Please follow up with the sleep care office in 1 year. - Clinic Information Contact: [facility] [address] [place] [address] [email or web address] T: [phone]
--- NOTE | 2023-05-26 16:14 | SLEEP CARE CONSULTATION ---
Information from patient questionnaire entered by Chiara Bray. I have reviewed and concur with the information entered by Chiara Bray. This document represents the service I personally performed and the decisions made by me, Payton Dietrich ARNP. History of Present Illness Service Date and Time: 05/26/2023 1545 Previous diagnosis: Moderate, Obstructive Sleep Apnea-Hypopnea Syndrome AHI: 15.2 (in 2020) Reason for follow up: annual (LAST SEEN 03/2022) Equipment type: CPAP (Resmed 07/2021) Equipment obtained from: [employer] (getting supplies as needed; needs updated chartnotes) Mask style: Full face (hybrid) Backup mask available: No (needs supplies) Last cushion change: 4 months Prior sleep studies: No Type of Sleep Study: Home sleep study HPI additional information: ANGIE HATCH was diagnosed to have moderate, AHI 15.2, obstructive sleep apnea-hypopnea syndrome and returned today for CPAP therapy annual follow-up. Sleep Study - Results Type of Sleep Study: Home sleep study Prior sleep studies: No CPAP Compliance Data - Data Reviewed with Patient Average duration of nightly device use: 5 HRS 29 MIN Compliance rate %: 73 (11/26/22-05/24/23; 155/180 days used) Current pressure setting (cmH2O): 8-10 Average residual AHI: 3.0 Central apnea: 0.5 Obstructive apnea: 0.4 Hypopnea: 0.5 Average large leak: 29.7 L/min Subjective Missed days of use due to: reports: travel (no distilled water) Patient concerns: reports: air blowing in eyes, nasal congestion, dry mouth, nose, throat (dry mouth). denies: aerophagia, mask discomfort, mask leak noise, condensation in mask/hose, epistaxis Observed to snore while using device: No Current pressure setting perceived as: comfortable On therapy, patient: reports: sleeping better, awakening more refreshed, being more awake and alert during the day, more rested overall. denies: drowsiness while driving Initial [place] Sleepiness Scale score: 3 (in 2019) Current [place] Sleepiness Scale score: 2 (05/26/23) Allergies and Home Medications Known drug allergies: Yes (as listed) Drug allergies reviewed: Yes Home medication list reviewed: Yes (no changes) Allergy and home medication list: Allergies Penicillins Allergy (Mild, Verified 05/25/23 16:06) Rash Sulfa (Sulfonamide Antibiotics) Allergy (Mild, Verified 05/25/23 16:06) sores in mouth azithromycin Allergy (Verified 05/25/23 16:06) Unknown omeprazole [From Prilosec] Allergy (Verified 05/25/23 16:06) Unknown Review of Systems Review of systems same as previous: Yes (no changes) Physical Exam Vital signs obtained and entered by: CHIARA Shi MA Blood Pressure: 126/72 (LEFT ARM) Cuff size: regular Heart Rate: 79 O2 Saturation: 97 Height: 6 ft Weight: 241 lb 3.2 oz Body Mass Index: 32.7 BMI Classification: Obese Impression and Plan 1. Obstructive Sleep Apnea-Hypopnea Syndrome, moderate, with good treatment compliance and good apnea control. On CPAP therapy, the patient has better sleep quality and is more rested overall. Patient has significant improvement of their sleep apnea and is satisfied with current CPAP therapy. He is in need of supplies but his DME instructed him that they needed updated chart notes to continue getting him supplies. I will update his DME prescription and the chart notes will be faxed along with that to his DME. He has been having increasing mask leaks and air leaking into his eyes. He has had some dry mouth more recently and nasal congestion. I advised him that being able to change his mask cushion will improve most of these issues. He may also adjust his humidity as needed to reduce oral or nasal dryness. He voiced understanding and agreement with plan. Patient's apnea severity and rationale for treatment to reduce apnea, improve sleep quality and reduce cardiovascular and cerebrovascular events was reviewed. I also reviewed the benefit of consistent device use of CPAP for hypertension and anxiety. 2. Obesity, unspecified. Currently patients BMI is 32.7. Obesity increases the risk of apnea, CPAP pressure requirements and overall health risks especially cardiovascular and diabetes. Thus patient is advised to lose weight. * Continue auto CPAP pressure at 8-10 cmH2O * Update supplies * Notify me if snoring with mask or feeling that the pressure is too much or too little * Attempt to lose weight * Call this office if any problems using CPAP * Return for follow up in 1 year, or sooner if concerns arise Counseling Topics: Spare mask, Weight loss health impact Visit Type: In Office Time Spent with Patient (minutes): 21 Provider Statement: I spent 100% of the Face to Face Visit with the patient with greater than 50% spent counseling the patient and coordination of care.
[2023-05-26 16:45] VITALS: BP 126/72
== END 2023-05-26 15:46 | disposition home or self-care (01) ==
LOC: SC 15:45
PROVIDERS: ATTEND Nurse Practitioner Family
DX: G47.33 Obstructive sleep apnea (adult) (pediatric) (principal); E66.9 Obesity, unspecified; Z68.32 Body mass index [BMI] 32.0-32.9, adult
CPT/HCPCS: 99212; 99213

== ENCOUNTER 2023-07-14 09:38 | Outpatient (CLI) | payer OTHER ==
--- NOTE | 2023-08-02 15:18 | Ultrasound Report ---
ULTRASOUND OF LEFT AXILLA: 07/14/2023 CLINICAL: Palpable left axilla lump. Comparison is made to exams dated: 12/28/2022 ultrasound and 09/19/2022 ultrasound - [facility]. Color flow ultrasound of the left axilla was performed. Garcia scale images of the real-time examinat ion were reviewed. There is a 5.6 cm x 4.3 cm x 2.1 cm oval enlarged lymph node with a circumscribed margin in the left axillary tail. This oval enlarged lymph node displays fatty hilum. This abnormality is increased in size and correlates as palpated. Color flow imaging demonstrates that there is vascularity present. IMPRESSION: SUSPICIOUS OF MALIGNANCY The 5.6 cm x 4.3 cm x 2.1 cm oval enlarged lymph node is at a low suspicion for malignancy given slow increase in short-axis diameter over time (1.3 and 1.7cm to 2.1cm). Normal fatty hilum and non-thick ened cortex still suggests benignity. Discussion with patient and correlation with clinical context recommended. Either followup in 6months and US guided sampling are reasonable options. This exam was interpreted at Station ID: Unknown. Electronically Signed By: Curt Moreno M.D. lc/:08/02/2023 14:37:54 Ultrasound BI-RADS: 4a Low suspicion for malignancy BI-RADS CATEGORY: (4a) - Low Susp Biopsy follow-up [id number] Immediate follow-up LATERALITY: (B)
== END 2023-07-14 09:39 | disposition home or self-care (01) ==
LOC: DI 09:38
PROVIDERS: ATTEND Internal Medicine
DX: R59.0 Localized enlarged lymph nodes (principal)

== ENCOUNTER 2024-06-03 08:47 | Outpatient (CLI) | payer OTHER ==
--- NOTE | 2024-06-03 16:22 | Ultrasound Report ---
PROCEDURE: Abdomen Limited INDICATIONS: RUQ ABD PAIN TECHNIQUE: Real-time focused scanning was performed of the abdomen, with image documentation. COMPARISONS: CT abdomen pelvis 12/17/2020. FINDINGS: Liver: Suggestion of diffusely increased echogenicity with progressive attenuation indicating fatty liver. Liver size of 14 cm. Gallbladder: No gallstones, sludge, wall thickening or pericholecystic edema. Biliary ducts: Intrahepatic bile ducts are non-dilated. Extrahepatic bile duct caliber measures 4.4 mm. Normal is 6-7 mm or less in diameter, or 10 mm or less post-cholecystectomy. Pancreas: Visualized portions of the pancreas are sonographically normal. Right kidney: Normal in size and echotexture. Right kidney measures 11.7 cm long. No hydronephrosis or nephrolithiasis. No solid masses. No complex renal cystic lesions which require follow-up. IVC: Intrahepatic inferior vena cava is patent. Miscellaneous: No free abdominal fluid. IMPRESSION: Slightly limited study due to patient body habitus; suggestion of fatty liver Reviewed by: Radames Srinivasan MD on 06/03/2024 4:21 PM PDT Approved by: Radames Srinivasan MD on 06/03/2024 4:21 PM PDT Station ID: [id number]
== END 2024-06-03 08:48 | disposition home or self-care (01) ==
LOC: DI 08:47
PROVIDERS: ATTEND Internal Medicine
DX: R10.11 Right upper quadrant pain (principal)

== ENCOUNTER 2024-06-14 09:55 | Outpatient (CLI) | payer OTHER ==
--- NOTE | 2024-06-14 15:36 | XRAY Report ---
PROCEDURE: Ribs w/PA Chest 3+V RT INDICATIONS: RIB PAIN TECHNIQUE: 2 views of the ribs were acquired, along with 2 frontal views of chest. COMPARISON: None. FINDINGS: Surgical changes and devices: None. Bones and chest wall: No fractures or dislocations. No suspicious bony lesions. Overlying soft tis sues appear unremarkable. Lungs and pleura: No pleural effusions or pneumothorax. Lungs appear clear. Mediastinum: Mediastinal contours appear normal. Heart size is normal. IMPRESSION: No displaced rib fracture or pneumothorax. Reviewed by: Radames Srinivasan MD on 06/14/2024 3:35 PM PDT Approved by: Radames Srinivasan MD on 06/14/2024 3:35 PM PDT Station ID: [id number]
== END 2024-06-14 09:56 | disposition home or self-care (01) ==
LOC: DI 09:55
PROVIDERS: ATTEND Internal Medicine
DX: R07.81 Pleurodynia (principal)

== ENCOUNTER 2024-07-12 10:36 | Outpatient (CLI) | payer OTHER ==
--- NOTE | 2024-07-12 11:01 | Sleep Patient Instructions ---
Sleep Center Visit Summary - Patient Visit Information Reason for Visit: Annual follow-up for PAP therapy - Patient Instructions Additional Instructions: You will continue with CPAP therapy with pressure set at 8-10 cmH2O. A supply prescription will be updated with your DME supplier. We encourage you to continue to try to lose weight. Please follow up with the sleep care office in 1 year. - Clinic Information Contact: [facility] [address] [place] [address] [email or web address] T: [phone]
--- NOTE | 2024-07-12 11:04 | SLEEP CARE CONSULTATION ---
Information from patient questionnaire entered by Zakia Bray. I have reviewed and concur with the information entered by Zakia Bray. This document represents the service I personally performed and the decisions made by me, Payton Dietrich ARNP. History of Present Illness Service Date and Time: 07/12/2024 1036 Previous diagnosis: Moderate, Obstructive Sleep Apnea-Hypopnea Syndrome AHI: 15.2 (in 2020) Reason for follow up: annual (LAST SEEN 04/2023) Equipment type: CPAP (Resmed 11, 07/2021) Equipment obtained from: [employer] (getting supplies as needed) Mask style: Full face (hybrid) Backup mask available: Yes Last cushion change: couple months Prior sleep studies: No Type of Sleep Study: Home sleep study HPI additional information: ANGIE HATCH was diagnosed to have moderate, AHI 15.2, obstructive sleep apnea-hypopnea syndrome and returned today for CPAP therapy annual follow-up. Sleep Study - Results Type of Sleep Study: Home sleep study Prior sleep studies: No CPAP Compliance Data - Data Reviewed with Patient Average duration of nightly device use: 5 HRS 5 MINS Compliance rate %: 80 (07/10/23-07/08/24; 329/365 days used) Current pressure setting (cmH2O): 8-10 Average residual AHI: 4.1 Central apnea: 0.5 Obstructive apnea: 0.5 Hypopnea: 0.7 Average large leak: 29.1 L/min Subjective Missed days of use due to: reports: travel Patient concerns: reports: mask leak noise, nasal congestion. denies: aerophagia, mask discomfort, air blowing in eyes, condensation in mask/hose, dry mouth, nose, throat, epistaxis Observed to snore while using device: No Current pressure setting perceived as: comfortable On therapy, patient: reports: sleeping better, awakening more refreshed, being more awake and alert during the day, more rested overall. denies: drowsiness while driving Initial [place] Sleepiness Scale score: 3 (in 2019) Current [place] Sleepiness Scale score: 3 (07/12/24) Allergies and Home Medications Known drug allergies: Yes (as listed) Drug allergies reviewed: Yes Home medication list reviewed: Yes (no changes) Allergy and home medication list: Allergies Penicillins Allergy (Mild, Verified 07/12/24 10:36) Rash Sulfa (Sulfonamide Antibiotics) Allergy (Mild, Verified 07/12/24 10:36) sores in mouth azithromycin Allergy (Verified 07/12/24 10:36) Unknown omeprazole [From Prilosec] Allergy (Verified 07/12/24 10:36) Unknown Review of Systems Review of systems same as previous: Yes (NO CHANGE) Physical Exam Vital signs obtained and entered by: ZAKIA Shi MA Blood Pressure: 140/91 (RIGHT ARM) Cuff size: long Heart Rate: 76 O2 Saturation: 97 Height: 6 ft Weight: 243 lb Body Mass Index: 32.9 BMI Classification: Obese Impression and Plan 1. Obstructive Sleep Apnea-Hypopnea Syndrome, moderate, with good treatment compliance and good apnea control. On CPAP therapy, the patient has better sleep quality and is more rested overall. Barney asks about other options for him for controlling his sleep apnea. I reviewed his last sleep study and his apnea is under 3 AHI when sleeping on his sides. He could do positional therapy when unable to use the CPAP. He states he will look into positional pillows or belts and let me know if he would like to change therapy. Patient has significant improvement of their sleep apnea and is satisfied with current CPAP therapy. Patient denies problems with oral dryness, nasal congestion, epistaxis, skin irritation or aerophagia. Patient's apnea severity and rationale for treatment to reduce apnea, improve sleep quality and reduce cardiovascular and cerebrovascular events was reviewed. I also reviewed the benefit of consistent device use of CPAP for migraines. 2. Obesity, unspecified. Currently patients BMI is 32.9. Obesity increases the risk of apnea, CPAP pressure requirements and overall health risks especially cardiovascular and diabetes. Thus patient is advised to lose weight. * Continue auto CPAP pressure at 8-10 cmH2O * Update supply prescription. * Notify me if snoring with mask or feeling that the pressure is too much or too little * Attempt to lose weight * Call this office if any problems using CPAP * Return for follow up in 12 months, or sooner if concerns arise Counseling Topics: Spare mask, Weight loss health impact Prescriptions: Device supplies Follow up with Sleep Care in: 1 year Visit Type: In Office Time Spent with Patient (minutes): 20 Provider Statement: I spent 100% of the Face to Face Visit with the patient with greater than 50% spent counseling the patient and coordination of care.
[2024-07-12 11:06] VITALS: BP 140/91; O2SAT 97
== END 2024-07-12 10:37 | disposition home or self-care (01) ==
LOC: SC 10:36
PROVIDERS: ATTEND Nurse Practitioner Family
DX: G47.33 Obstructive sleep apnea (adult) (pediatric) (principal); E66.9 Obesity, unspecified; Z68.32 Body mass index [BMI] 32.0-32.9, adult
CPT/HCPCS: 99212; 99213